=== PATIENT | male | born 1945 | race Caucasian/White ===

== ENCOUNTER 2017-07-02 11:15 | Emergency (ER) | payer OTHER ==
[~2017-07-02] VITALS: Ht 172.7 cm; Wt 89.4 kg
[~2017-07-02 11:15] MED LIST: FENOFIBRATE145 MG; FORTAMET1000 MG; GLIMEPIRIDE4 MG; TIGAN250 MG
== END 2017-07-03 10:57 | disposition designated cancer center or children's hospital (05) ==
LOC: ER 11:15 → CPU-OBS 11:18 → ER 07-03 10:57
DX: I21.4 Non-ST elevation (NSTEMI) myocardial infarction (principal); R07.89 Other chest pain; R42 Dizziness and giddiness; R51 Headache; M79.602 Pain in left arm; E11.65 Type 2 diabetes mellitus with hyperglycemia; R61 Generalized hyperhidrosis

== ENCOUNTER 2023-08-11 09:40 | Outpatient (CLI) | payer OTHER | END 2023-08-11 09:55 | disposition home or self-care (01) | LOC: SONOGRAMA 09:40 | PROVIDERS: ATTEND Urology | DX: M25.519 Pain in unspecified shoulder (principal); N40.0 Benign prostatic hyperplasia without lower urinary tract symptoms; N47.1 Phimosis; N40.1 Benign prostatic hyperplasia with lower urinary tract symptoms; N20.0 Calculus of kidney; R33.9 Retention of urine, unspecified; J06.9 Acute upper respiratory infection, unspecified ==

== ENCOUNTER → 2023-11-03 | Emergency (ER) | payer OTHER ==
[~2023-11-03] VITALS: Ht 172.7 cm; Wt 88.0 kg
[~2023-11-03] MED LIST changes: +0.9 % SODIUM CHLORIDE 1,000 ML IV STA; +ADULT ASPIRIN81 MG PO; +FARXIGA5 MG PO; +JANUMET 50-1,01 EACH PO; +LANTUS SOL100 UNIT/1 SQ; +LIPITOR20 MG PO; +PLAVIX75 MG PO
[2023-11-03 17:16] LABS: HEMATOCRIT 43.5 % (39.0-48.0); HEMOGLOBIN 14.5 g/dL (13-16.00); MEAN CELL VOLUME 78.3 fL (80.0-100.00); MEAN CORPUSCULAR HGB CONC 33.2 g/dl (32.0-36.0); PLATELET COUNT 194 K/uL (150-450); RED BLOOD COUNT 5.55 M/uL (4.00-6.00)
[2023-11-03 17:41] LABS: CALCIUM 9.6 mg/dL (8.5-10.1); CREATININE SERUM 0.96 mg/dL (0.70-1.30); GFR 75.75; POTASSIUM 4.2 mEq/L (3.5-5.1)
== END | disposition designated cancer center or children's hospital (05) ==
LOC: ER 10:23
PROVIDERS: General Practice
DX: S06.6X0A Traumatic subarachnoid hemorrhage without loss of consciousness, initial encounter (principal); W18.30XA Fall on same level, unspecified, initial encounter; Y93.E8 Activity, other personal hygiene; Y92.012 Bathroom of single-family (private) house as the place of occurrence of the external cause; Y99.9 Unspecified external cause status
CPT/HCPCS: 96365; 96366; 99285; J7030